=== PATIENT | female | born 1995 | race Caucasian/White ===

== ENCOUNTER 2020-07-26 10:30 | Emergency (ER) | payer OTHER, SELFPAY ==
[2020-07-26 10:37] VITALS: BP 129/88; PULSE 90; RESP 16; TEMP 37; O2SAT 100
--- NOTE | 2020-07-26 10:49 | ED.FEMALEGU ---
HPI - Female Genitourinary General Chief complaint: Urogenital-Female Stated complaint: poss uti Time Seen by Provider: 07/26/20 10:50 Source: patient and RN notes reviewed Mode of arrival: ambulatory Limitations: no limitations History of Present Illness HPI Narrative: 24-year-old female presents concern for urinary tract infection. Reports on and off history of urine frequency, urgency, decreased urine output, suprapubic pressure. Reports symptoms started getting worse again over the weekend. Reports she had taken Azo on and off over the last 2 weeks, reports she has not taken Azo in the last 12 hours. She denies nausea, vomiting, fever, back pain, hematuria. Denies abnormal vaginal discharge. MD elicited complaint: UTI Related Data Home Medications Medication Instructions Recorded Confirmed norgestimate-ethinyl estradiol 1 tablet PO DAILY 07/26/20 07/26/20 [Sprintec (28)] phentermine 37.5 mg PO DAILY 07/26/20 07/26/20 topiramate 50 mg PO BID 07/26/20 07/26/20 Allergies Allergy/AdvReac Type Severity Reaction Status Date / Time No Known Allergies Allergy Verified 07/26/20 10:54 Review of Systems Review of Systems: Narrative: CONSTITUTIONAL: Denies malaise, chills, sweats, or fever. CARDIOVASCULAR: Denies chest pain, palpitations, or edema. RESPIRATORY: Denies cough or dyspnea. GASTROINTESTINAL: Denies abdominal pain, nausea, vomiting, diarrhea GENITOURINARY: Reports frequency, urgency, dysuria, suprapubic pressure, decreased urine output. Denies flank pain or hematuria. SKIN: Denies rash or itching. MUSCULOSKELETAL: Denies back pain or myalgia. NEUROLOGIC: Denies headache. All systems reviewed & are unremarkable except as noted in HPI and below PMFSH Comments At time of signature, agree with nursing past medical, surgical, social and family history. There is no relevant family history pertinent to the presenting complaint Exam Narrative: Exam Narrative: GENERAL: Well-appearing, well-nourished, and in no acute distress. HEAD: Normocephalic. EYES: PERRLA, conjunctivae clear. NECK: Supple. No lymphadenopathy CHEST: Clear to auscultation. No respiratory distress. HEART: Regular rate and rhythm. ABDOMEN: Soft, nontender upon palpation, nondistended, normal active bowel sounds, no palpable or pulsatile masses, no guarding. No CVA tenderness SKIN: Warm, dry, no rash. NEURO: Alert and oriented x3. PSYCH: Normal mood and affect Course Course Emergency Course: Patient is aware of diagnosis, understands and agrees to treatment plan. Anticipatory guidance given. Patient agrees to follow-up as directed and is aware of reasons to seek care at the emergency department. Portions of this record may have been created with voice recognition software Vital Signs Vital signs: Vital Signs Temperature 98.6 F 07/26/20 10:37 Respiratory Rate 07/26/20 10:37 Blood Pressure 129/88 07/26/20 10:37 Pulse Oximetry 100 07/26/20 10:37 Temperature 98.6 F 07/26/20 10:37 Respiratory Rate 16 07/26/20 10:37 Blood Pressure 129/88 07/26/20 10:37 Pulse Oximetry 100 07/26/20 10:37 Reviewed. MDM - Female Genitourinary MDM Narrative Medical decision making narrative: Exam findings and UA show no acute concerns or changes; patient is non-toxic appearing and is in no distress. Patient is appropriate for outpatient treatment and follow-up. Differential Diagnosis Differential diagnosis: Likely urinary tract infection and cystitis Lab Data Labs: Urine Glucose Negative Reference Range: Negative Urine Bilirubin Negative Reference Range: Negative Urine Ketone Negative Reference Range: Negative Urine Specific [place] 1.025 Reference Range:1.001-1.035
== END 2020-07-26 11:00 | disposition home or self-care (01) ==
PROVIDERS: Emergency Provider Nurse Practitioner; PCP Family Medicine
DX: R35.0 Frequency of micturition (principal); R39.15 Urgency of urination; R10.30 Lower abdominal pain, unspecified
CPT/HCPCS: 81003; 87086; 87088; 99213; G0463